=== PATIENT | female | born 1975 | race Caucasian/White ===

== ENCOUNTER 2017-11-25 06:21 | Observation (INO) ==
[2017-11-25] MEDS ORDERED: 0.9 % Sodium Chloride 1,000 ML IVC ONE (07:16)
[2017-11-25] MEDS ORDERED: Ondansetron 4 MG/2 ML VIAL IVP ONE (07:16)
--- NOTE | 2017-11-25 07:24 | Emergency Department Note ---
Disposition Clinical Impression: Gait abnormality, Nystagmus Disposition: Admitted As Inpatient Condition: Fair Referrals: Paige Navarro MD [Primary Care Provider] - Forms: ED Satisfaction Letter Time of Disposition: 09:17 Dizziness HPI - General Chief Complaint: ED Dizziness Stated Complaint: dizzy,nausea Time Seen by Provider: 11/25/17 07:16 Source: patient, family Limitations: no limitations Nursing Notes Reviewed: Yes Vital Signs Reviewed: Yes - History of Present Illness HPI Narrative: 42-year-old female hx of migraines, htn, presents complaining of acute onset gait abnormality about an hour and half ago. Patient symptoms have resolved, she was having some difficulty reaching for the doorknob on her way to work this morning when she is in house. Her family sat her down his of that she also had questionable slurred words, although her symptoms have resolved since then. History of stroke or CVA, no history of complex migraines although she does get headaches and takes topiramate, the patient has no chest pain, shortness of breath, hemoptysis, unilateral leg swelling, no recent fevers or chills, patient denies emesis but she has had some nausea she describes the sensation as feeling lightheaded like she is in a pass out or fall down, but she states that she did not feel like the room was spinning at all. Patient's on IUD partners a vasectomy not concerned about . No dysuria or hematuria, no melena or hematochezia. No bleeding or spotting. States that she has never had anything like this happen to her before. She says she does feel better although on the walk back to her room in the emergency department she did feel some what of the same symptoms, some trouble walking. Pt Subjective Complaint: lightheadedness, near syncope Onset (ago): hour(s) Timing: sudden onset Description: sense of movement, lightheadedness History of similar episodes: No History of trauma: No Severity: moderate Worsens with: movement Associated symptoms: Denies: ataxia, chest pain, confusion, diaphoresis, rash, shortness of breath, nausea, vomiting - Related Data Home Medications Medication Instructions Recorded Confirmed Celexa PO DAILY 07/20/15 07/20/15 Spironolactone PO DAILY 07/20/15 07/20/15 Allergies Allergy/AdvReac Type Severity Reaction Status Date / Time No Known Allergies Allergy Verified 07/20/15 06:50 All systems ED: reviewed and negative except as stated. Review of Systems: As Per HPI Constitutional: Denies: fever, chills Eyes: Denies: eye pain, eye discharge ENT ED: Denies: ear pain Cardiovascular: Denies: chest pain, palpitations Respiratory: Denies: cough, dyspnea Gastrointestinal: Denies: abdominal pain, nausea Genitourinary: Denies: urgency, dysuria Musculoskeletal: Denies: back pain Integumentary: Denies: rash, abrasion Neurological: Reports: as per HPI, weakness, confusion, abnormal gait. Denies: headache, numbness, paresthesias Psychiatric: Denies: anxiety Past Medical History - Past Medical History Attestation: Yes The following information was validated with the patient. Source: patient Medical history: Reports: hypertension, other Surgical history: Reports: non-contributory Psychiatric history: Reports: depression - Social History Smoking Status: Never smoker Smokeless Tobacco Status: No Alcohol use: Reports: none Drug use: Reports: none Physical Exam Constitutional: NAD, vital signs reviewed and wnl Eyes: PERRLA, sclera anicteric ENT & Mouth: MM dry Neck: normal inspection, neck is supple Resp: CTA bilaterally, no resp distress CV: RRR, no m/g/r GI: normal inspection, soft, morbidly obese no guarding or rigidity Neuro: A&O3, CNII-XII grossly intact, HAWKINS, HINTS exam shows negative test of skew, bidirectional nystagmus+, negative head impulse testing, patient able to amblulate dysmetria. Negative Romberg test +3 out of 4 bilateral patellar reflexes Skin: on limited exam, skin intact with no rashes or lesions - General Limitations: no limitations General appearance: alert, in no apparent distress Course Course Narrative: 42-year-old female with complaints of gait difficulty, difficulty reaching been able to see the doorknob in front of her, some confusion, however symptoms have resolved and lasted for few minutes earlier this morning when she is ready for bed, differential includes BPPV, labyrinthitis, smiling physician, multiple sclerosis, central lesion, at this time getting CBC BMP troponin urinalysis, noncontrast head CT, EKG was reviewed and showed normal intervals, no acute ischemic changes. - Reevaluation(s) Reevaluation #1: Hospitalist paged, imaging negative. Time: 08:52 Reevaluation #2: Dr. Bruner accepting the patient for inpatient admission, likely MRI, neurology consult was placed patient's hemodynamically stable at this time. - Consultations Consultation #1: COnsulted Neurology Dr Phan recommends admission and MRI Vital Signs Temperature 97.8 F 11/25/17 06:22 Pulse Rate 91 11/25/17 06:22 Respiratory Rate 16 11/25/17 06:22 Blood Pressure 123/81 11/25/17 06:22 O2 Sat by Pulse Oximetry 98 11/25/17 06:22 Temperature 97.8 F 11/25/17 06:22 Pulse Rate 74 11/25/17 08:58 Respiratory Rate 14 11/25/17 08:58 Blood Pressure 102/61 11/25/17 08:58 O2 Sat by Pulse Oximetry 99 11/25/17 08:58 Oxygen Delivery Oxygen Delivery Room Air Dizziness - Differential Diagnosis Likely: benign paroxysmal positional vertigo, orthostatic hypotension, vertebral basilar insufficiency, cerebellar tumor - Medical Records Medical records reviewed: Yes I reviewed the patient's medical records. - Lab Data Lab results reviewed: Yes I reviewed the patient's lab results. Result diagrams: 11/25/17 07:35 11/25/17 07:35 Lab Results 11/25/17 11/25/17 11/25/17 Range/Units 07:18 07:18 07:35 WBC 9.7 (4.3-11.1) K/mcL RBC 4.31 (3.82-4.97) M/mcL Hgb 13.7 (11.5-15.4) g/dL Hct 41.1 (35.3-44.9) % MCV 95.4 (83.0-100.0) fL MCH 31.8 (28.0-33.3) pg MCHC 33.3 (31.6-35.5) g/dL RDW 12.3 (11.5-14.5) % Plt Count 246 (140-400) K/mcL MPV 10.3 (9.4-12.4) fL Immature Gran % 0.2 (0-4) % Seg Neutrophils % 68.6 % Lymphocytes % 21.9 % Monocytes % 6.3 % Eosinophils % 2.6 % Basophils % 0.4 % Neutrophils # 6.6 (1.6-8.9) K/mcL Lymphocytes # 2.1 (0.6-4.6) K/mcL Monocytes # 0.6 (0.0-1.3) K/mcL Eosinophils # 0.3 (0.0-0.6) K/mcL Basophils # 0.0 (0.0-0.2) K/mcL Sodium (136-145) mEq/L Potassium (3.5-5.1) mEq/L Chloride (98-107) mEq/L Carbon Dioxide (23-29) mEq/L BUN (6-20) mg/dL Creatinine (0.60-1.20) mg/dL Est GFR ( Amer) (> 60) Est GFR (Non-Af Amer) (> 60) BUN/Creatinine Ratio (6-26) Glucose (70-105) mg/dL POC Glucose (58-89) Calculated Osmolality (280-300) Calcium (8.6-10.3) mg/dL Total Bilirubin (0.3-1.0) mg/dL AST (13-39) Units/L ALT (7-52) Units/L Alkaline Phosphatase (34-104) Units/L Troponin I (< 0.04) ng/mL Serum Total Protein (6.4-8.9) g/dL Albumin (3.5-5.7) g/dL Globulin (2.4-3.5) g/dL Albumin/Globulin Ratio (1.1-2.2) Lipase (11-82) Units/L Urine Color Yellow (Yellow) Urine Clarity Clear (Clear) Urine pH 6.5 (5.0-8.0) pH Units Ur Specific Rubicon 1.020 (1.010-1.025) Urine Protein Negative (Neg-Trace) mg/dL Urine Glucose (UA) Normal (Normal) mg/dL Urine Ketones Negative (Negative) mg/dL Urine Blood Negative (Negative) Urine Nitrite Negative (Negative) Urine Bilirubin Negative (Negative) Urine Urobilinogen Normal (Normal) mg/dL Ur Leukocyte Esterase Negative (Negative) Ur Culture Indicated? NO (NO) Urine Test Negative (Negative) 11/25/17 11/25/17 11/25/17 Range/Units 07:35 07:35 07:51 WBC (4.3-11.1) K/mcL RBC (3.82-4.97) M/mcL Hgb (11.5-15.4) g/dL Hct (35.3-44.9) % MCV (83.0-100.0) fL MCH (28.0-33.3) pg MCHC (31.6-35.5) g/dL RDW (11.5-14.5) % Plt Count (140-400) K/mcL MPV (9.4-12.4) fL Immature Gran % (0-4) % Seg Neutrophils % % Lymphocytes % % Monocytes % % Eosinophils % % Basophils % % Neutrophils # (1.6-8.9) K/mcL Lymphocytes # (0.6-4.6) K/mcL Monocytes # (0.0-1.3) K/mcL Eosinophils # (0.0-0.6) K/mcL Basophils # (0.0-0.2) K/mcL Sodium 138 (136-145) mEq/L Potassium 3.8 (3.5-5.1) mEq/L Chloride 107 (98-107) mEq/L Carbon Dioxide 24 (23-29) mEq/L BUN 16 (6-20) mg/dL Creatinine 0.82 (0.60-1.20) mg/dL Est GFR ( Amer) > 60 (> 60) Est GFR (Non-Af Amer) > 60 (> 60) BUN/Creatinine Ratio 20 (6-26) Glucose 71 (70-105) mg/dL POC Glucose 101 H (58-89) Calculated Osmolality 286 (280-300) Calcium 9.5 (8.6-10.3) mg/dL Total Bilirubin 0.4 (0.3-1.0) mg/dL AST 22 (13-39) Units/L ALT 37 (7-52) Units/L Alkaline Phosphatase 132 H (34-104) Units/L Troponin I < 0.03 (< 0.04) ng/mL Serum Total Protein 7.8 (6.4-8.9) g/dL Albumin 4.6 (3.5-5.7) g/dL Globulin 3.2 (2.4-3.5) g/dL Albumin/Globulin Ratio 1.4 (1.1-2.2) Lipase 40 (11-82) Units/L Urine Color (Yellow) Urine Clarity (Clear) Urine pH (5.0-8.0) pH Units Ur Specific Rubicon (1.010-1.025) Urine Protein (Neg-Trace) mg/dL Urine Glucose (UA) (Normal) mg/dL Urine Ketones (Negative) mg/dL Urine Blood (Negative) Urine Nitrite (Negative) Urine Bilirubin (Negative) Urine Urobilinogen (Normal) mg/dL Ur Leukocyte Esterase (Negative) Ur Culture Indicated? (NO) Urine Test (Negative) - Radiology Data Radiology results reviewed: Yes I reviewed the patient's radiology results. - EKG Data EKG attestation: Yes I reviewed and interpreted this EKG. EKG shows normal: sinus rhythm Rate: normal (79 bpm MS 154 QRS 84 QTC [address] segment elevations or depressions, left axis. No evidence of WPW, no evidence of Brugada.) Attestation Statement - Attestation Attestation: I examined this patient and my medical decision-making was reviewed with the Resident Physician, Dr. Cook. I agree with the documented findings, disposition and treatment plan as described except to the extent set forth below. She is a 42-year-old white female with a history of migraine headaches and hypertension who presents to the emergency department brought by a friend after she had a transient neurologic episode this morning. A few hours prior to arrival that she was leaving the house and it was reported that she was witnessed very ataxic gait although patient did not initially appreciate any dizziness. Patient states she went to grab the door handle and actually missed on repeated attempts and began feeling dizzy. Patient denied any pain, no headaches chest pain or visual changes and no focal weakness. She was reported to have transient slurred speech during this episode. On arrival to the ED patient's symptoms had resolved. Patient has no prior stroke or TIA-like symptoms no prior history of vertigo or dizziness. Vital signs stable on arrival. I agree with patient's physical exam findings as documented. Patient's labs, chest x-ray, and noncontrast head CT all within normal limits. Patient ambulating without difficulty and neurologic exam is stable over time with the only abnormal finding on physical exam being horizontal nystagmus. Case was discussed with neurology who agrees with admission and MRI they were consulate from the ED. Patient will be admitted to the hospitalist service for further eval.
[2017-11-25 07:36] LABS: Bilirubin,Urine Negative (Negative); Blood,Urine Negative (Negative); Clarity,Urine Clear (Clear); Color,Urine Yellow (Yellow); Glucose,Urine (UA) Normal (Normal); Ketones,Urine Negative (Negative); Leukocyte Esterase,Urine Negative (Negative); Nitrite,Urine Negative (Negative); PH,Urine 6.5 pH Units (5.0-8.0); Protein,Urine Negative (Neg-Trace); Urobilinogen,Urine Normal (Normal)
[2017-11-25 07:41] LABS: Basophils % 0.4 %; Eosinophils # 0.3 K/mcL (0.0-0.6); Eosinophils % 2.6 %; Hematocrit 41.1 % (35.3-44.9); Hemoglobin 13.7 g/dL (11.5-15.4); Immature Granulocytes % 0.2 % (0-4); Lymphocytes # 2.1 K/mcL (0.6-4.6); Lymphocytes % 21.9 %; Mean Corpuscular HGB Conc 33.3 g/dL (31.6-35.5); Mean Corpuscular Hemoglobin 31.8 pg (28.0-33.3); Mean Corpuscular Volume 95.4 fL (83.0-100.0); Mean Platelet Volume 10.3 fL (9.4-12.4); Monocytes # 0.6 K/mcL (0.0-1.3); Monocytes % 6.3 %; Neutrophils # 6.6 K/mcL (1.6-8.9); Platelet Count 246 K/mcL (140-400); Red Blood Count 4.31 M/mcL (3.82-4.97); Red Cell Distribution Width 12.3 % (11.5-14.5); Segmented Neutrophils % 68.6 %
[2017-11-25 07:56] LABS: Alanine Aminotransferase 37 Units/L (7-52); Albumin 4.6 g/dL (3.5-5.7); Albumin/Globulin Ratio 1.4 (1.1-2.2); Alkaline Phosphatase 132 Units/L (34-104); Aspartate Amino Transferase 22 Units/L (13-39); BUN/Creatinine Ratio 20 (6-26); Bilirubin,Total 0.4 mg/dL (0.3-1.0); Blood Urea Nitrogen 16 mg/dL (6-20); Calcium 9.5 mg/dL (8.6-10.3); Carbon Dioxide 24 mEq/L (23-29); Chloride 107 mEq/L (98-107); Globulin 3.2 g/dL (2.4-3.5); Glucose 71 mg/dL (70-105); Lipase 40 Units/L (11-82); Osmolality,Calculated 286 (280-300); Potassium 3.8 mEq/L (3.5-5.1); Sodium 138 mEq/L (136-145); Total Protein 7.8 g/dL (6.4-8.9); eGFR For African Americans > 60 (> 60); eGFR For Non-African Americans > 60 (> 60)
[2017-11-25] MEDS ORDERED: Aspirin 325 MG TABLET PO ONE (08:46)
[2017-11-25] MEDS ORDERED: Ondansetron 4 MG/2 ML VIAL IVP PRN (09:52)
[2017-11-25] MEDS ORDERED: clonazePAM 0.5 MG TABLET PO PRN (09:55)
--- NOTE | 2017-11-25 10:01 | Internal Med History&Physical ---
Date of Encounter: 11/25/17 Time of Encounter: 09:56 Assessment and Plan (1) Vertigo Current visit: Yes Status: Acute Peripheral versus central vertigo. Symptoms has improved significantly during my interview. differential include benign positional vertigo versus central causes including CVA or MS. She had some vision problems where she was unable to hold the doorknob and this may have been related to the nystagmus or if she had some transient paralysis in the ocular muscles as seen with multiple sclerosis. MRI of the brain will be performed. Appreciate neurology input. Physical therapy occupational therapy to see the patient. She is normal sinus rhythm on EKG. Also check echocardiogram carotid Doppler. Orthostatic vital signs performed in the emergency room were negative for orthostasis Internal Medicine - H&P: HPI Chief complaint: dizziness, unsteadiness History of present illness: Ms. Gilliam is a 42 year old female presents to the emergency room today with the main complain of dizziness unsteadiness. Approximately 5:30 AM, the patient started experiencing dizziness, gate unsteadiness where she was unable to walk unassisted, in addition to difficulty with her vision. She mentioned that she was unable to open the door knob. Family decided to bring her to emergency room she was unable to walk to the car without assistance. She denies any prior similar history. She denies any focal weakness. Her symptoms have significantly improved during my interview and in fact she mentioned that she was able to walk from her back to the bathroom. He does not take any hormonal contraception. No fever chills cough expectoration urinary symptoms or diarrhea Past Med Surg Social Fam HX - Past Medical History Medical history: hypertension, other Psychiatric history: depression - Past Surgical History Surgical History: non-contributory - Social History Smoking Status: Never smoker Smokeless Tobacco Status: No Alcohol use: none Drug use: none Internal Medicine - H&P: Meds Citalopram [CeleXA] 30 mg PO DAILY 07/20/15 [History] Spironolactone [Aldactone] 100 mg PO DAILY 07/20/15 [History] Topiramate [Topiramate] 50 mg PO TID 11/25/17 [History] clonazePAM [Klonopin] 0.5 mg PO BID PRN 11/25/17 [History] 3 Allergy/AdvReac Type Severity Reaction Status Date / Time sulfamethoxazole Allergy Rash Verified 11/25/17 09:47 [From Bactrim] trimethoprim [From Bactrim] Allergy Rash Verified 11/25/17 09:47 All Systems PM: A 10-system review of systems was performed and is negative for pertinent findings except as documented above in the HPI. Review of systems: 10 point review of systems is negative except for HPI - Constitutional Vitals: Temp Pulse Resp BP Pulse Ox 97.8 F 71 14 119/56 99 11/25/17 06:22 11/25/17 09:27 11/25/17 09:27 11/25/17 09:27 11/25/17 09:27 Exam: Gen.: patient is alert oriented times 3 not in distress. Cardiac: normal S1 S2 no additional sounds are murmurs. Chest: clear to auscultation. Abdomen: soft nontender nondistended. Lower extremity no swelling mucous membranes: moist Neuro: peripheral nystagmus. Finger to nose and finger to doctor finger intact. Romberg deferred. No focal weakness Internal Med - H&P Results - Labs CBC & Chem 7: 11/25/17 07:35 11/25/17 07:35
[2017-11-25] MEDS: Topiramate 25 MG TABLET PO SCH ×2 (15:13→22:31)
[2017-11-25] MEDS: *HR* Heparin 5,000 UNIT/ML VIAL SQ SCH ×2 (15:13→22:31)
--- NOTE | 2017-11-25 16:29 | Neurology - Consult Note ---
Date of Encounter: 11/25/17 Time of Encounter: 16:25 Assessment and Plan (1) Gait abnormality Current Visit: Yes Status: Acute I suspect that this may all have been the result of an inadvertent excess dosage of Klonopin. She explained to myself as well as to the house staff what happened. She does feel better. However we will obtain an MRI scan of her brain in the morning. I did not see nystagmus at this time. Her neurologic exam is otherwise normal. If the MRI scan is unremarkable then she may be discharged at your discretion. History of Present Illness HPI: Ms. Gilliam is a 42 year old female seen for neurologic evaluation secondary to symptoms of clumsiness and balance difficulty earlier this morning. She had some blurred vision, and was apparently unable to hold doorknob this morning. She started off with a stressful day and realized that she had actually taken 3 of her 0.5 mg Klonopin instead of the Celexa that she normally takes. However earlier today she had nystagmus and clumsiness in the major differential was acute onset of multiple sclerosis versus cerebral infarct. She did have some nystagmus when initially seen in the ED. CT scan of the head was unremarkable. She was sleeping soundly in the room when I entered however was arousable to voice. She was very pleasant. She feels much improved. MRI scan of the brain is yet pending. She has been up walking in the room without difficulty.. Past Med Surg Social Fam HX - Past Medical History Medical history: other Psychiatric history: anxiety, depression - Past Surgical History Surgical History: non-contributory - Social History Smoking Status: Former smoker Smokeless Tobacco Status: No Alcohol use: none Drug use: none - Family History Mother Age: 66 Living Status: Still Living Hx Family Reproductive Disorders: Yes (prolapsed uterus) Hx Family Medical Disorders: Yes (dementia) Father Age: 66 Living Status: Still Living Hx Family Endocrine Disorder: Yes (DM) Hx Family Medical Disorders: Yes (veins stripped) Medications and Allergies Citalopram [CeleXA] 30 mg PO DAILY 07/20/15 [History] Spironolactone [Aldactone] 100 mg PO DAILY 07/20/15 [History] Topiramate [Topiramate] 50 mg PO TID 11/25/17 [History] clonazePAM [Klonopin] 0.5 mg PO BID PRN 11/25/17 [History] 3 Allergy/AdvReac Type Severity Reaction Status Date / Time sulfamethoxazole Allergy Rash Verified 11/25/17 09:47 [From Bactrim] trimethoprim [From Bactrim] Allergy Rash Verified 11/25/17 09:47 All Systems: A 10-system review of systems was performed and is negative for pertinent findings except as documented above in the HPI. Review of Systems: 10 review of systems is consistent with a history of present illness and otherwise negative. Physical Examination - Vital Signs Vital Signs: Initial Vital Signs Temp Pulse Resp BP Pulse Ox 97.8 F 91 16 123/81 98 11/25/17 06:22 11/25/17 06:22 11/25/17 06:22 11/25/17 06:22 11/25/17 06:22 - Neurologic Detailed motor examination: full strength in all major muscle groups Motor examination - right side: 5/5: deltoids, biceps, triceps, wrist flexion, wrist extension, conductor orchestra, hip flexors, tibialis Anterior, quadriceps, toe extension (EHL), plantarflexion Motor examination - left side: 5/5: deltoids, biceps, triceps, wrist flexion, wrist extension, hip flexors, conductor orchestra, quadriceps, tibialis Anterior, toe extension (EHL), plantarflexion Reflexes: Biceps: 2+, Triceps: 2+, Brachioradialis: 2+, Patella: 2+, Achilles: 2 + Mental Status Examination: awake, alert, oriented to person, oriented to place, oriented to time, follows commands appropriately, answers questions appropriately, no agnosia, no aphasia, no aproxia Cranial nerve examination: PERRL, EOMI, visual burnett intact, corneal reflexes brisk symmetrically, sensory to face intact, mastication intact, no facial asymmetry is present, no dysarthria, hearing is intact symmetrically, soft palate elevates bilaterally upon phonation, gag reflex intact, flexes SCM and trapezius muscles symmetrically with full power, tongue protrudes midline, no atrophy or facial fasiculations present Cerebellar examination: no dysmetria, performs finger to nose and heel to strauss symmetrically without ataxia, no gait ataxia, no truncal ataxia, no difficulty with rapid alternating movements Results - Laboratory Findings CBC and BMP: 11/25/17 07:35 11/25/17 07:35 Abnormal lab findings: Abnormal lab results POC Glucose 101 (58-89) H 11/25/17 07:51 Alkaline Phosphatase 132 Units/L (34-104) H 11/25/17 07:35 Consult Discharge Plan - Plan Referrals: Paige Navarro MD [Primary Care Provider] -
[2017-11-25] MEDS: Famotidine 20 MG/2 ML VIAL IVP SCH (18:33)
[2017-11-26] MEDS: *HR* Heparin 5,000 UNIT/ML VIAL SQ SCH ×3 (05:36→21:28)
[2017-11-26] MEDS: Famotidine 20 MG/2 ML VIAL IVP SCH ×2 (05:36→18:23)
[2017-11-26 06:30] LABS: Basophils # 0.1 K/mcL (0.0-0.2); Basophils % 0.8 %; Eosinophils # 0.3 K/mcL (0.0-0.6); Eosinophils % 3.1 %; Hematocrit 38.6 % (35.3-44.9); Hemoglobin 12.9 g/dL (11.5-15.4); Immature Granulocytes % 0.3 % (0-4); Lymphocytes # 2.4 K/mcL (0.6-4.6); Lymphocytes % 29.5 %; Mean Corpuscular HGB Conc 33.4 g/dL (31.6-35.5); Mean Corpuscular Hemoglobin 32.1 pg (28.0-33.3); Monocytes # 0.6 K/mcL (0.0-1.3); Monocytes % 7.2 %; Neutrophils # 4.7 K/mcL (1.6-8.9); Platelet Count 208 K/mcL (140-400); Red Blood Count 4.02 M/mcL (3.82-4.97); Red Cell Distribution Width 12.4 % (11.5-14.5); Segmented Neutrophils % 59.1 %
[2017-11-26 06:41] LABS: BUN/Creatinine Ratio 19 (6-26); Blood Urea Nitrogen 14 mg/dL (6-20); Calcium 8.4 mg/dL (8.6-10.3); Carbon Dioxide 22 mEq/L (23-29); Chloride 110 mEq/L (98-107); Glucose 93 mg/dL (70-105); Osmolality,Calculated 286 (280-300); Potassium 3.8 mEq/L (3.5-5.1); Sodium 138 mEq/L (136-145); eGFR For African Americans > 60 (> 60); eGFR For Non-African Americans > 60 (> 60)
--- NOTE | 2017-11-26 09:33 | Neurology Progress Note ---
<Adal Graf - Last Filed: 11/26/17 15:22> Date of Encounter: 11/26/17 Time of Encounter: 09:33 Assessment and Plan (1) Gait abnormality Current Visit: Yes Status: Acute likely secondary to mistakingly taking excess klonopin, but must rule out other causes. patient states she feels a lot better today, and her gait is intact. she denies any dizziness. preliminary carotid duplex shows 60-79% stenosis of bilateral mid ICA MRI brain shows white matter signal abnormality in posterior horn of right lateral ventricle, concerning for demyelinating disease. Plan: MRI brain with contrast pending will do lumbar puncture later today and send CSF analysis, suspect possible MS Subjective Principal diagnosis: gait abnormality Interval history: 42F evaluated at bedside. patient denies nausea, vomiting, diarrhea, fever, chills, chest pain, shortness of breath. she denies dizziness, and denies gait troubles. she has no complaints today. Objective - Constitutional Vitals: Temp Pulse Resp BP Pulse Ox 98.1 F 78 17 129/70 98 11/26/17 09:19 11/26/17 09:19 11/26/17 09:19 11/26/17 09:19 11/26/17 09:19 General appearance: Present: A&O X 3, pleasant, no acute distress, answers questions appropriately - Head Head exam: Present: atraumatic, normocephalic - Eye Eye exam: Present: EOMI, normal appearance, PERRL, sclera anicteric. Absent: nystagmus - Extremities Exam Extremities exam: Absent: cyanotic, pedal edema - Neurological Exam Sensorimotor examination: Present: intact Motor Examination: Present: full strength in all major muscle groups Motor examination - right side: 5/5: deltoids, biceps, triceps, wrist flexion, wrist extension, medical data entry clerk, hip flexors, tibialis Anterior, quadriceps, toe extension (EHL), plantarflexion Motor examination - left side: 5/5: deltoids, biceps, triceps, wrist flexion, wrist extension, hip flexors, medical data entry clerk, quadriceps, tibialis Anterior, toe extension (EHL), plantarflexion Sensation intact: Present: intact Reflex and gait examination: intact Reflexes: Brachioradialis: 2+, Patella: 2+ Mental Status Examination: Present: awake, alert, oriented to person, oriented to place, oriented to time, follows commands appropriately, answers questions appropriately, no agnosia, no aphasia, no aproxia Cranial nerve examination: Present: PERRL, EOMI, visual burnett intact, sensory to face intact, mastication intact, no facial asymmetry is present, no dysarthria, soft palate elevates bilaterally upon phonation, flexes SCM and trapezius muscles symmetrically with full power, tongue protrudes midline, no atrophy or facial fasiculations present Cerebellar examination: Present: no dysmetria, no gait ataxia, no truncal ataxia , no difficulty with rapid alternating movements Results - Laboratory Findings CBC and BMP: 11/26/17 05:30 11/26/17 05:30 Abnormal lab findings: Abnormal lab results Chloride 110 mEq/L (98-107) H 11/26/17 05:30 Carbon Dioxide 22 mEq/L (23-29) L 11/26/17 05:30 POC Glucose 101 (58-89) H 11/25/17 07:51 Calcium 8.4 mg/dL (8.6-10.3) L 11/26/17 05:30 Alkaline Phosphatase 132 Units/L (34-104) H 11/25/17 07:35 Consult Discharge Plan - Plan Referrals: Paige Navarro MD [Primary Care Provider] - <Ethan Phan - Last Filed: 11/26/17 15:36> Date of Encounter: 11/26/17 Assessment and Plan (1) Gait abnormality Current Visit: Yes Status: Acute Subjective Interval history: Chart was reviewed, patient was seen and examined independently. I agree with the resident's note as stated above. Objective - Constitutional Vitals: Temp Pulse Resp BP Pulse Ox 99.4 F 85 17 92/67 98 11/26/17 15:21 11/26/17 15:21 11/26/17 15:21 11/26/17 15:21 11/26/17 15:21 Results - Laboratory Findings CBC and BMP: 11/26/17 05:30 11/26/17 05:30 Abnormal lab findings: Abnormal lab results Chloride 110 mEq/L (98-107) H 11/26/17 05:30 Carbon Dioxide 22 mEq/L (23-29) L 11/26/17 05:30 POC Glucose 101 (58-89) H 11/25/17 07:51 Calcium 8.4 mg/dL (8.6-10.3) L 11/26/17 05:30 Alkaline Phosphatase 132 Units/L (34-104) H 11/25/17 07:35
--- NOTE | 2017-11-26 09:46 | Electrocardiograph Report ---
[address] [place], [place] [address] Test Date: 2017-11-25 Pat Name: Mary Gilliam Department: 104 Room: 3B Gender: F [employer]: PM : 1975 Requested By: Xavier Ballesteros Order Number: [id number] Reading MD: Litzy Young Measurements Intervals [place] Rate: 79 P: 48 OR: 154 QRS: 34 QRSD: 84 T: 42 QT: 365 QTc: 399 Interpretive Statements SINUS RHYTHM Electronically Signed On 11-26-2017 9:44:57 EST by Litzy Young
[2017-11-26] MEDS: Aspirin 81 MG TAB.CHEW PO SCH (10:19)
[2017-11-26] MEDS: Topiramate 25 MG TABLET PO SCH ×3 (10:19→21:27)
--- NOTE | 2017-11-26 15:27 | Procedure Note ---
<Adal Graf - Last Filed: 11/26/17 15:23> Date of procedure: 11/26/17 Pre-op diagnosis: gait abnormality Post-op diagnosis: same Procedure: Lumbar Puncture Date: 11/26/17 Time: 1500 Indication: gait abnormality, possible Multiple Sclerosis. Resident: Adal Graf D.O Attending: Dr. Phan A time-out was completed verifying correct patient, procedure, site, positioning , and special equipment if applicable. The patient was placed in the upright sitting position. The lumbar area was cleansed and draped in usual sterile fashion. 1% lidocaine was used anesthetize the surrounding skin area. A 20 guage spinal needle was placed in the L3-L4 interspace. Clear cerebral spinal fluid was obtained. Four tubes were filled with approximately 4 mL of CSF. These were sent for the usual tests, including 1 tube to be held for further analysis if needed. Attendingn Physician Dr. Phan was present for the entire procedure Estimated Blood Loss: minimal The patient tolerated the procedure well and there were no complications. Anesthesia: local Surgeon: Adal Graf Was there an elder assistant present: Yes Telesales Specialist: Ethan Phan Estimated blood loss (cc): 1 Specimen: four tubes of CSF Condition: stable Disposition: observation <Ethan Phan - Last Filed: 11/26/17 15:38> Procedure: The procedure is correct as stated above. However initially blood-tinged cerebral spinal fluid was expelled. The CSF however cleared with progression of the task. I would like to run cell counts on tube #4.
[2017-11-26 16:19] LABS: Glucose,CSF 61 mg/dL (40-70); Total Protein,CSF 65 mg/dL (15-45)
[2017-11-26 16:49] LABS: Red Blood Cell,CSF < 0.002 M/mcL
[2017-11-26 18:31] LABS: Lymphocytes,CSF 73.3 %; Monocytes,CSF 6.7 %
[2017-11-26 18:32] LABS: Appearance,CSF Clear (Clear)
--- NOTE | 2017-11-26 18:35 | Internal Med Progress Note ---
Date of Encounter: 11/26/17 Time of Encounter: 11:00 - Assessment and plan (1) Vertigo Current Visit: Yes Status: Acute Assessment and plan: Neurology consulted for dizziness with workup including lumbar puncture and MRI Appreciate any further recommendations. - Subjective Interval history: Neurology consulted for dizziness with workup including lumbar puncture and MRI - Constitutional Vitals: Temp Pulse Resp BP Pulse Ox 99.4 F 85 17 92/67 98 11/26/17 15:21 11/26/17 15:21 11/26/17 15:21 11/26/17 15:21 11/26/17 15:21 - Respiratory Respiratory exam: Present: CTAB. Absent: accessory muscle use, rales, rhonchi, wheezes - Cardiovascular Cardiovascular exam: Present: RRR, +S1, +S2. Absent: diastolic murmur, gallop, rubs, systolic murmur Internal Medicine: Result - Labs CBC & Chem 7: 11/26/17 05:30 11/26/17 05:30 Labs: Short CBC 11/26/17 Range/Units 05:30 WBC 8.0 (4.3-11.1) K/mcL Hgb 12.9 (11.5-15.4) g/dL Hct 38.6 (35.3-44.9) % Plt Count 208 (140-400) K/mcL Neutrophils # 4.7 (1.6-8.9) K/mcL BMP 11/26/17 05:30 Sodium 138 Potassium 3.8 Chloride 110 H Carbon Dioxide 22 L BUN 14 Creatinine 0.73 Glucose 93 Calcium 8.4 L - Impressions Impressions Brain MRI 11/26/17 09:51 IMPRESSION: Single focus of white matter signal abnormality adjacent to the posterior horn of the right lateral ventricle. This is oriented perpendicular to the lateral ventricle and is concerning for a demyelinating focus given the clinical history provided. Postcontrast MR imaging is suggested for further evaluation. Correlation with CSF analysis may be helpful for further evaluation as well. D/ / 11/26/2017 09:22:20 Galo Alexandre MD / Mary Kate Phillips Interpreting Provider: Galo Alexandre MD Echocardiogram 11/26/17 09:54 Impressions: LVEF 55%. Normal left ventricular diastolic function. Normal right ventricular structure and function. No significant valvular dysfunction. No pulmonary hypertension. Left Ventricular Wall Motion: Rest Echo Findings All wall segments showed normal motion. Findings: ECG Findings * Normal sinus rhythm. Left Ventricle * LVEF 55%. * Normal LV chamber size, wall thickness and function. * Normal left ventricular diastolic function. Right Ventricle * Normal right ventricular structure and function. Left Atrium * Normal left atrial size. Right Atrium * Normal right atrial size. Mitral Valve * Normal mitral valve structure. * No mitral stenosis. * Trace mitral regurgitation. Aortic Valve * No aortic regurgitation. * No aortic stenosis. * Trileaflet aortic valve. Tricuspid Valve * Normal tricuspid valve structure. * Trace tricuspid regurgitation. * Estimated RA pressure is 3 mmHg. * Estimated RVSP is 22 mmHg. * No pulmonary hypertension. Pulmonic Valve * Pulmonic valve is not well visualized. * No pulmonic stenosis. * No pulmonic regurgitation. Pulmonary Artery * Pulmonary artery not well visualized. Aorta * Normally sized aortic root. Pericardium * There is no pericardial effusion present. Interatrial Septum * No evidence of PFO by color Doppler. IVC * Normal IVC dimensions and inspiratory collapse. Study Quality * Technically adequate exam. Brain MRI 11/26/17 10:49 IMPRESSION: The single nonspecific periventricular white-matter lesion does not demonstrate abnormal enhancement to suggest active demyelination. Consider correlation with CSF analysis for further evaluation. No abnormal enhancement identified within the brain. D/ / 11/26/2017 13:57:07 Galo Alexandre MD / rosa Interpreting Provider: Galo Alexandre MD Consult Discharge Plan - Plan Referrals: Paige Navarro MD [Primary Care Provider] -
[2017-11-26] MEDS: Acetaminophen 325 MG TABLET PO PRN (21:28)
[2017-11-27] MEDS: Famotidine 20 MG/2 ML VIAL IVP SCH (05:33)
[2017-11-27] MEDS: *HR* Heparin 5,000 UNIT/ML VIAL SQ SCH (05:33)
--- NOTE | 2017-11-27 08:12 | Neurology Progress Note ---
Date of Encounter: 11/27/17 Time of Encounter: 08:12 Assessment and Plan (1) Gait abnormality Current Visit: Yes Status: Acute Subjective Principal diagnosis: gait abnormality Interval history: Chart was reviewed, patient was seen and examined independently. I agree with the resident's note as stated above. Objective - Constitutional Vitals: Temp Pulse Resp BP Pulse Ox 97.7 F 75 16 97/65 93 11/27/17 07:16 11/27/17 07:16 11/27/17 07:16 11/27/17 07:16 11/27/17 07:16 General appearance: Present: A&O X 3, pleasant, no acute distress, answers questions appropriately - Neurological Exam Sensorimotor examination: Present: intact Motor Examination: Present: full strength in all major muscle groups Motor examination - left side: 5/5: deltoids, biceps, triceps, wrist flexion, wrist extension, hip flexors, career development engineer, quadriceps, tibialis Anterior, toe extension (EHL), plantarflexion Sensation intact: Present: intact Reflex and gait examination: intact Mental Status Examination: Present: awake, alert, oriented to person, oriented to place, oriented to time, follows commands appropriately, answers questions appropriately, no agnosia, no aphasia, no aproxia Cranial nerve examination: Present: PERRL, EOMI, visual burnett intact, sensory to face intact, mastication intact, no facial asymmetry is present, no dysarthria, soft palate elevates bilaterally upon phonation, flexes SCM and trapezius muscles symmetrically with full power, tongue protrudes midline, no atrophy or facial fasiculations present Cerebellar examination: Present: no dysmetria, no gait ataxia, no truncal ataxia , no difficulty with rapid alternating movements Results - Laboratory Findings CBC and BMP: 11/26/17 05:30 11/26/17 05:30 Abnormal lab findings: Abnormal lab results Chloride 110 mEq/L (98-107) H 11/26/17 05:30 Carbon Dioxide 22 mEq/L (23-29) L 11/26/17 05:30 POC Glucose 101 (58-89) H 11/25/17 07:51 Calcium 8.4 mg/dL (8.6-10.3) L 11/26/17 05:30 Alkaline Phosphatase 132 Units/L (34-104) H 11/25/17 07:35 CSF Tot Nucleated Cells 14 TNC/mcL (0-5) H* 11/26/17 15:34 CSF Total Protein 65 mg/dL (15-45) H 11/26/17 15:34 Consult Discharge Plan - Plan Referrals: Paige Navarro MD [Primary Care Provider] -
--- NOTE | 2017-11-27 08:16 | Neurology Progress Note ---
Date of Encounter: 11/27/17 Time of Encounter: 08:13 Assessment and Plan (1) Gait abnormality Current Visit: Yes Status: Acute The patient has no further complaints at this time. However a lumbar puncture is abnormal revealing elevated lymphocytes as well as elevated protein. In lieu of these findings and the absence of any evidence of an underlying infection I am suspicious of a demyelinating disorder. We also have to address the bilateral carotid artery stenosis. I will obtain a CTA of the neck today. We will also order a cholesterol panel. After this workup is been completed I feel that it is okay to discharge her and I will follow up with her in my office as an outpatient for ongoing workup assessment and treatment. Subjective Principal diagnosis: gait abnormality Interval history: The chart was reviewed, patient was seen and examined. She had an uneventful night. The results of the lumbar puncture were assessed. The fluid was clear and colorless, there were no RBCs present. There were 14 WBCs present, 73% lymphocytes. Protein was elevated at 65. I suspect that these indices A be consistent with an underlying autoimmune process perhaps MS. Is no reason to suspect a central nervous system infectious process clinically. I will also obtain a CTA of the neck to further assess the carotid artery stenosis reflected by the carotid Doppler studies. She is in no acute distress and her neurologic examination remains normal. Objective - Constitutional Vitals: Temp Pulse Resp BP Pulse Ox 97.7 F 75 16 97/65 93 11/27/17 07:16 11/27/17 07:16 11/27/17 07:16 11/27/17 07:16 11/27/17 07:16 General appearance: Present: A&O X 3, pleasant, no acute distress, answers questions appropriately - Neurological Exam Sensorimotor examination: Present: intact Motor Examination: Present: full strength in all major muscle groups Motor examination - right side: 5/5: deltoids, biceps, triceps, wrist flexion, wrist extension, manufacturing process technician, hip flexors, tibialis Anterior, quadriceps, toe extension (EHL), plantarflexion Motor examination - left side: 5/5: deltoids, biceps, triceps, wrist flexion, wrist extension, hip flexors, manufacturing process technician, quadriceps, tibialis Anterior, toe extension (EHL), plantarflexion Sensation intact: Present: intact Reflex and gait examination: intact Mental Status Examination: Present: awake, alert, oriented to person, oriented to place, oriented to time, follows commands appropriately, answers questions appropriately, no agnosia, no aphasia, no aproxia Cranial nerve examination: Present: PERRL, EOMI, visual burnett intact, sensory to face intact, mastication intact, no facial asymmetry is present, no dysarthria, soft palate elevates bilaterally upon phonation, flexes SCM and trapezius muscles symmetrically with full power, tongue protrudes midline, no atrophy or facial fasiculations present Cerebellar examination: Present: no dysmetria, no gait ataxia, no truncal ataxia , no difficulty with rapid alternating movements Results - Laboratory Findings CBC and BMP: 11/26/17 05:30 11/26/17 05:30 Abnormal lab findings: Abnormal lab results Chloride 110 mEq/L (98-107) H 11/26/17 05:30 Carbon Dioxide 22 mEq/L (23-29) L 11/26/17 05:30 POC Glucose 101 (58-89) H 11/25/17 07:51 Calcium 8.4 mg/dL (8.6-10.3) L 11/26/17 05:30 Alkaline Phosphatase 132 Units/L (34-104) H 11/25/17 07:35 CSF Tot Nucleated Cells 14 TNC/mcL (0-5) H* 11/26/17 15:34 CSF Total Protein 65 mg/dL (15-45) H 11/26/17 15:34 Consult Discharge Plan - Plan Referrals: Paige Navarro MD [Primary Care Provider] -
[2017-11-27] MEDS: Acetaminophen 325 MG TABLET PO PRN (08:43)
[2017-11-27] MEDS: Topiramate 25 MG TABLET PO SCH (08:44)
[2017-11-27] MEDS: Aspirin 81 MG TAB.CHEW PO SCH (08:44)
[2017-11-27 09:46] LABS: Chol/HDL Ratio 4.4 (0-4.9)
[2017-11-27 11:05] VITALS: BP 106/67
--- NOTE | 2017-11-27 12:14 | Discharge Summary ---
Date of Encounter: 11/27/17 Time of Encounter: 09:30 - Discharge Diagnosis (1) Gait abnormality Priority: Primary Status: Resolved Comments: presented with gait. Head CT nonacute, brain MRI white matter signal abnormality concerning for demyelinating process. LP fluid analysis showed elevated lymphocytes and protein. Evaluated by neurology who is suspicious of underlying demyelinating disorder. Patient returned to baseline, no further neurological workup needed at this time. Will need to follow up with Dr. Phan (Neurology) outpatient. (2) Carotid stenosis Priority: Primary Status: Chronic Comments: Bilateral carotid Dopplers with proximal ICA severe 60-79% stenosis. Neck CTA without evidence of stenosis or dissection in the carotid and vertebral circulation. Continue statin. Qualifiers: Laterality: bilateral Qualified Code(s): I65.23 - Occlusion and stenosis of bilateral carotid arteries (3) Hyperlipemia Priority: Primary Status: Acute Comments: LDL 116; statin initiated Qualifiers: Hyperlipidemia type: pure hypercholesterolemia Qualified Code(s): E78.00 - Pure hypercholesterolemia, unspecified; E78.0 - Pure hypercholesterolemia (4) Obesity, morbid, BMI 40.0-49.9 Priority: Secondary Status: Chronic Comments: BMI 41; lifestyle modifications encouraged - Discharge Medications Prescriptions: Atorvastatin Calcium [Lipitor] 20 mg PO HS #30 tablet Home Medications: Citalopram [CeleXA] 30 mg PO DAILY 07/20/15 [History] Spironolactone [Aldactone] 100 mg PO DAILY 07/20/15 [History] Topiramate 50 mg PO TID 11/25/17 [History] clonazePAM [Klonopin] 0.5 mg PO BID PRN 11/25/17 [History] Atorvastatin Calcium [Lipitor] 20 mg PO HS #30 tablet 11/27/17 [Rx] Allergies/Adverse Reactions: 3 Allergy/AdvReac Type Severity Reaction Status Date / Time sulfamethoxazole Allergy Rash Verified 11/25/17 09:47 [From Bactrim] trimethoprim [From Bactrim] Allergy Rash Verified 11/25/17 09:47 Procedures/tests Complete & Pending: Procedures Performed prior 72 hours Category Date Time Status CTA Neck [CT angio neck] [CT] Routine Cat Scan 11/27/17 11:30 Draft MR head/brain w con [MR] Routine MRI 11/26/17 10:49 Draft MR head/brain wo con [MR] Routine MRI 11/26/17 09:51 Completed EV carotid duplex imaging BI Routine Y 11/26/17 09:52 Completed EV echocardiogram Routine Y 11/26/17 09:54 Completed Date of admission: 11/25/17 09:23 Primary care physician: Paige Shaffer Consults: 11/25/17 09:52 Consult to Occupational Therapy [CONS] Routine Comment: Evaluate, develop and implement POC Reason for Consult: gait unsteadiness Consult to Physical Therapy [CONS] Routine Comment: Evaluate, develop and implement POC Reason for Consult: gait unsteadiness Discharging clinician: Arianna Poole Anticipated date of discharge: 11/27/17 - Patient Status Disposition: Home, Self-Care Condition: Good Functional capacity at discharge: independent ambulation Overall status at discharge: patient is back to baseline - Discharge Instructions Instructions: Multiple Sclerosis (DC) Follow Up With: Paige Navarro MD [Primary Care Provider] - - Diet and Activity Activity: increase activity as tolerated Diet: advance to your usual diet, low fat, low cholesterol Interval History: Seen and examined at bedside, he is new to me. Information obtained from chart review and patient report. Patient says she overall feels better and is back to baseline. Has some intermittent numbness and tingling to bilateral feet which is not new. No chest pain or shortness of breath, no numbness or tingling to upper extremities, no weakness. No slurred speech or difficulty ambulating. She is aware of need to follow up with neurology outpatient. Hospital course: Ms. Gilliam is a 42 year old female - Time Spent with Patient Total time spent providing and/or coordinating discharge services: - Constitutional Vitals: Temp Pulse Resp BP Pulse Ox 98.6 F 70 16 106/67 97 11/27/17 11:02 11/27/17 11:02 11/27/17 11:02 11/27/17 11:02 11/27/17 11:02 General appearance: Present: A&O X 3, morbidly obese, no acute distress - Head Head exam: Present: atraumatic, normocephalic - Eye Eye exam: Present: PERRL, conjuntiva pink, sclera anicteric Pupils: Present: PERRL - Neck Neck exam general surgery: Present: supple, trachea midline. Absent: lymphadenopathy - Respiratory Respiratory exam: Present: CTAB. Absent: accessory muscle use, rales, rhonchi, wheezes - Cardiovascular Cardiovascular exam: Present: RRR, +S1, +S2. Absent: diastolic murmur, gallop, rubs, systolic murmur - GI/Abdominal GI/Abdominal exam: Present: normal bowel sounds, soft, no peritoneal signs. Absent: distended, tenderness - Extremities Exam Extremities exam: Present: warm, radial pulses palpable and symmetrical. Absent : calf tenderness, cyanotic, pedal edema - Neurological Exam Neurological exam: Present: CN II-XII intact, oriented X3, no focal deficits. Absent: pronater drift, facial droop, speech deficit - Skin Skin exam: Present: dry, intact
[2017-11-29 12:33] LABS: Albumin Index 7.4 ratio (0.0-9.0); Albumin by Nephelometry 4180 mg/dL (3500-5200)
[2017-11-29 14:36] LABS: IgG Serum 1070 mg/dL (768-1632)
== END 2017-11-27 13:50 | disposition home or self-care (01) ==
LOC: EMEROO 06:21 → 3BNU 06:21 → SUATTDRO 09:23 → 3BNU 10:12
PROVIDERS: ADMIT Hospitalist; ATTEND Hospitalist